=== PATIENT | female | born 1950 | race African-American/Black ===

== ENCOUNTER 2020-03-15 23:01 | Emergency (ER) | payer OTHER ==
[~2020-03-15] VITALS: Ht 165.1 cm; Wt 81.6 kg
[2020-03-15 23:12] VITALS: BP_SYST 165
--- NOTE | 2020-03-15 23:12 | NUR ---
Patient triaged and placed in waiting room. VSS and patient appears in no acute distress at this time. Accompanied by SELF, awaiting available bed, and MD notified of need for MSE.
--- NOTE | 2020-03-15 23:56 | NUR ---
Patient to ER bed 4 for evaluation. Side rails up. Report given to Vinny BURNETT.
--- NOTE | 2020-03-16 00:57 | NUR ---
Dr. Barragan bedside for Pt eval
[2020-03-16] MEDS ORDERED: FLUORESCEIN SODIUM 1 MG OPHTHALMIC STRIP OP ONE (01:00)
[2020-03-16] MEDS ORDERED: TETRACAINE HCL/PF 0.5% OPHTHALMIC DROPS 4 ML OP ONE (01:00)
--- NOTE | 2020-03-16 01:20 | NUR ---
Pt BIB family to ED C/O RT EYE PRESSURE SINCE LAST NIGHT. 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 VSS no s/s of acute distress Resting on gurney rails up
--- NOTE | 2020-03-16 02:05 | NUR ---
Dr. Barragan bedside for eye exam
[2020-03-16 02:45] VITALS: BP_SYST 158
--- NOTE | 2020-03-16 02:45 | NUR ---
Patient given written and verbal discharge instructions and verbalizes understanding. ER MD discussed with patient the results and treatment provided. Patient in stable condition. ID arm band removed. Rx of [place] and Erythromycin eye oint given. Patient educated on pain management and to follow up with PMD. Pain Scale 0/10 Opportunity for questions provided and answered. Medication side effect fact sheet provided.
== END 2020-03-16 02:45 | disposition home or self-care (01) ==
LOC: SED 23:01
DX: H10.89 Other conjunctivitis (principal); Z88.5 Allergy status to narcotic agent; Z88.6 Allergy status to analgesic agent
CPT/HCPCS: 99283